=== PATIENT | female | born 1965 | race Caucasian/White ===

== ENCOUNTER 2018-11-09 11:30 | Outpatient (CLI) | payer OTHER ==
[~2018-11-09] VITALS: Ht 162.6 cm; Wt 68.0 kg
[~2018-11-09 11:30] MED LIST: AGM875T PO
[2018-11-09] MEDS ORDERED: ESTR1TAB24 PO (11:42)
[2018-11-09] MEDS ORDERED: MEDR2.5T6 PO (11:42)
== END 2018-11-09 12:33 | disposition home or self-care (01) ==
LOC: PREOP 11:30
PROVIDERS: ATTEND Internal Medicine
DX: Z01.818 Encounter for other preprocedural examination (principal)

== ENCOUNTER 2018-11-12 07:41 | Day surgery (SDC) | payer OTHER ==
--- NOTE | 2018-10-27 05:57 | HISTORY AND PHYSICAL ---
DATE OF SERVICE: COLONOSCOPY HISTORY AND PHYSICAL PROCEDURE IS SET UP FOR: 11/12/2018. THE PATIENT WAS SEEN ON: 10/20/2018. HISTORY OF PRESENT ILLNESS: The patient is a 52-year-old white female, referred by Dr. Guevara for her first screening colonoscopy. She reports that her father in his early 70s underwent colonoscopy. She thinks it may have been his first one and colon polyps were removed. He had some other type of bowel problem that required surgery, but she does not know the specifics in his early 70s. She is not aware of any known history for colon cancer. She denies any bowel habit changes noted. No bright red blood per rectum or melena. She denies any problems with heartburn, dysphagia or change in weight. PAST MEDICAL HISTORY: Pretty unremarkable. PAST SURGICAL HISTORY: She had a D and C post-miscarriage and as I recall over 20 years ago. She is on hormonal replacement, taking estradiol 1 mg daily and medroxyprogesterone 2.5 mg daily and is on no other medication. Reports that she takes no supplements. FAMILY HISTORY: In addition to mentioned above, there is a family history of inherited kidney disease. Her function has been normal, but her brother and an uncle have required kidney transplantation and are doing well. Brother is 50, he has no other health problems. Sister is 45, alive and well. She is not aware of any family history for malignancy. PHYSICAL EXAMINATION: GENERAL: Reveals a well-appearing, normal white female in no acute distress. VITAL SIGNS: Weight 148 pounds, blood pressure 120/70. HEENT: Unremarkable. Sclerae nonicteric. NECK: Revealed no JVD, adenopathy or bruits. CARDIOVASCULAR: Revealed a regular rate and rhythm without murmur, S3 or S4. ABDOMEN: Soft, supple without mass, organomegaly or tenderness. Bowel sounds are positive. EXTREMITIES: Reveal no cyanosis, clubbing or edema. ASSESSMENT AND PLAN: The patient was set up for screening colonoscopy on 11/12/2018. Prep instructions with Suprep kit were given and questions were answered. I thank you for the referral of this pleasant lady. Sincerely, Job ID: [id number] DocumentID: [id number] Dictated Date: 10/21/2018 09:46:05 Journeyman Electrician Date: 10/21/2018 10:10:30 Dictated By: ALVARO NOEL MD
[~2018-11-12] VITALS: Ht 162.6 cm; Wt 68.0 kg
[~2018-11-12 07:41] MED LIST changes: +D5 LR IV SOLUTION 1,000 ML IV ONE; +ESTR1TAB24 PO; +MEDR2.5T6 PO
--- OUTSIDE RECORDS SUMMARY | 2018-11-12 07:44 | XMS REPORT | Continuity of Care Document ---
Author Organization Unknown Address Unknown Allergies Active Description Code Type Severity Reaction Onset Reported/Identified Relationship to Patient Clinical Status Yes [id number] (SULFA (SULFONAMIDE ANTIBIOTICS)) [id number] (SULFA (SULFONAMIDE ANTIBIOTICS)) Mild N/A 03/06/2009 Yes Sulfa (Sulfonamide Antibiotics) [id number] Drug Allergy Unknown Rash 11/09/2018 Medications There is no data. Problems Date Dx Coded Attending Type Code Diagnosis Diagnosed By 11/09/2018 ALVARO NOEL MD Ot Z01.818 ENCOUNTER FOR OTHER PREPROCEDURAL EXAMIN 11/09/2018 ALVARO NEOL MD Ot Z01.818 ENCOUNTER FOR OTHER PREPROCEDURAL EXAMIN 11/09/2018 LAVARO NOEL MD Ot Z01.818 ENCOUNTER FOR OTHER PREPROCEDURAL EXAMIN 11/09/2018 ALVARO NOEL MD Ot Z01.818 ENCOUNTER FOR OTHER PREPROCEDURAL EXAMIN 11/09/2018 ALVARO NOEL MD Ot Z01.818 ENCOUNTER FOR OTHER PREPROCEDURAL EXAMIN Procedures There is no data. Results There is no data. Encounters ACCT No. Visit Date/Time Discharge Status Pt. Type Provider Facility Loc./Unit Complaint [id number] 11/09/2018 11:30:00 11/09/2018 12:33:00 DIS Outpatient ALVARO NOEL MD [facility] PREOP COLONOSCOPY [id number] 09/03/2018 09:24:00 09/03/2018 23:59:59 CLS Preadmit JESUS CUMMINGS MD [facility] RAD ROUTINE [id number] 09/01/2017 14:58:00 09/01/2017 23:59:59 CLS Preadmit JESUS CUMMINGS MD [facility] RAD ROUTINE SCREENING [id number] 05/08/2015 11:19:00 05/08/2015 23:59:59 CLS Outpatient EMILIANO HUERTA, JESUS Smith [facility] RAD [id number] 11/12/2018 08:30:00 PEN Preadmit SADIE HUERTA, ALVARO Gonzáles [facility] ENDO SCREENING
[2018-11-12] MEDS ORDERED: D5 LR IV SOLUTION 1,000 ML IV STA (08:03)
[2018-11-12] MEDS ORDERED: fentaNYL INJECTION 100 MCG/2 ML AMP IVP ONE (08:15)
[2018-11-12] MEDS ORDERED: MIDAZOLAM 2 MG/2 ML (VERSED) VIAL IVP ONE (08:15)
[2018-11-12] MEDS ORDERED: LIDOCAINE JELLY 2% 6 ML SYRINGE MM PRN (08:15)
[2018-11-12 08:21] VITALS: BP 135/91
[2018-11-12] MEDS ORDERED: LIDOCAINE JELLY 2% 6 ML SYRINGE ONE (08:24)
[2018-11-12] MEDS ORDERED: fentaNYL INJECTION 100 MCG/2 ML AMP ONE (08:24)
[2018-11-12] MEDS ORDERED: MIDAZOLAM 2 MG/2 ML (VERSED) VIAL ONE ×3 (08:24→08:54)
[2018-11-12] MEDS ORDERED: fentaNYL INJECTION 100 MCG/2 ML AMP IVP PRN (09:00)
--- NOTE | 2018-11-12 09:14 | Pre-Op Note & Conscious Sedat ---
Pre-Operative Progress Note H&P Reviewed The H&P was reviewed, patient examined and no changes noted. Date H&P Reviewed: Nov 12, 2018 Time H&P Reviewed: 07:55 Conscious Sedation Pre-Proced ASA Score 1 For ASA 3 and 4: Consider anesthesia and medical clearance. Also, for patients with a history of failed moderate sedation consider anesthesia. Airway Lungs Heart ASA score ASA 1: a normal healthy patient ASA 2: a patient with a mild systemic disease (mid diabetes, controlled hypertension, obesity ASA 3: a patient with a severe systemic disease that limits activity (angina, COPD, prior Myocardial infarction) ASA 4: a patient with an incapacitating disease that is a constant threat to life (CHF, renal failure) ASA 5: a moribund patient not expected to survive 24 hrs. (ruptured aneurysm) ASA 6: a declared brain- patient whose organs are being harvested. For emergent operations, add the letter E after the classification Mallampati Classification Grade 2 Sedation Plan Analgesia, Amnesia, Plan communicated to team members, Discussed options with patient/fam, Discussed risks with patient/fam The patient is an appropriate candidate to undergo the planned procedure, sedation, and anesthesia. The patient immediately re-assessed prior to indication. ALVARO NOEL MD Nov 12, 2018 09:14
[2018-11-12 09:15] VITALS: BP 117/66
[2018-11-12 09:45] VITALS: BP 136/88
[2018-11-12 10:40] VITALS: BP 136/88
--- NOTE | 2018-11-12 16:20 | OPERATIVE REPORT ---
DATE OF SERVICE: 11/12/2018 COLONOSCOPY SUMMARY INDICATION FOR THE PROCEDURE: Screening colonoscopy. The patient was placed in the left lateral decubitus position. Prior to undergoing colonoscopy, digital rectal evaluation was performed. Anal sphincter tone was normal. Perianal reflexes intact. Digital findings suggest a small anterior rectocele with no other abnormalities being noted on digital inspection of anal canal or distal rectal vault. The colonoscope was then inserted into the rectum under direct visualization and advanced to the cecum. The cecum was identified by identification of the ileocecal valve and cecal strap. Photographic documentation was obtained. Careful inspection was made as the colonoscope was withdrawn. The quality of prep was fair. FINDINGS: There was no evidence for internal or external hemorrhoids and the rectum, sigmoid colon, ascending colon, transverse colon, ascending colon and cecum were unremarkable with no evidence for neoplasia, diverticular disease or vascular malformation. ASSESSMENT: Normal colonoscopy to the cecum. The patient is not aware of any family history for colon cancer. Father recently had reported colon polyps removed in his mid 70s. I would advocate consideration for repeat screening colonoscopy in 10 years. Job ID: [id number] DocumentID: [id number] Dictated Date: 11/12/2018 11:49:54 Adjunct Psychology Faculty Member Date: 11/12/2018 16:20:17 Dictated By: ALVARO NOEL MD MTDD
== END 2018-11-12 10:40 | disposition home or self-care (01) ==
LOC: ENDO 07:41
PROVIDERS: ATTEND Internal Medicine
DX: Z12.11 Encounter for screening for malignant neoplasm of colon (principal); Z83.71 Family history of colonic polyps